=== PATIENT | female | born 1960 ===

== ENCOUNTER 2024-07-27 05:15 | Day surgery (SDC) | payer OTHER ==
[2024-07-25 10:24] VITALS: BP 107/70
[2024-07-25 10:50] LABS: BASO % 0.6 % (0.1-1.2); EOS # 0.06 (0.04-0.54); EOS % 1.1 % (0.7-7.0); HEMATOCRIT 42.4 % (34.1-44.9); HEMOGLOBIN 13.7 g/dL (11.2-15.7); LYMPH # 1.61 (1.18-3.74); MEAN CORPUSCULAR HEMOGLOBIN 27.7 pg (25.6-32.2); MONO # 0.38 (0.24-0.82); MONO % 7.1 % (4.7-12.5); NEUT # 3.28 (1.56-6.13); PLATELET COUNT 322 K/uL (163-369); RED BLOOD COUNT 4.95 M/uL (3.93-5.22); RED CELL DISTRIBUTION WIDTH 14.3 % (11.6-14.4)
[2024-07-25 11:11] LABS: INR 0.97; PARTIAL THROMBOPLASTIN TIME 29.6 SECONDS (22.0-34.0); PROTHROMBIN TIME 10.6 SECONDS (9.0-11.5)
[2024-07-25 11:13] LABS: URINE APPEARANCE Clear; URINE BILIRRUBIN Negative (NEGATIVE); URINE BLOOD Negative; URINE COLOR Yellow; URINE GLUCOSE Negative (NEGATIVE); URINE KETONE Negative (NEGATIVE); URINE LEUKOCYTE Trace; URINE NITRATE Negative; URINE PROTEIN Trace (NEGATIVE)
[2024-07-25 11:17] LABS: URINE BACTERIA 346.3 uL (0.0-1933); URINE RBC 6.1 uL (0.0-20.8); URINE WBC 9.4 uL (0.0-23.2)
[2024-07-25 11:27] LABS: URINE CAST 0.44 uL (0.0-1.40)
[2024-07-25 12:06] LABS: ALBUMIN 3.9 gm/dL (3.4-5.0); BILIRUBIN TOTAL 0.66 mg/dL (0.3-1.2); CALCIUM 9.4 mg/dL (8.5-10.1); CREATININE SERUM 0.62 mg/dL (0.55-1.02); GFR 97.53; GLOBULINA 3.7 G/DL (2.4-3.5); POTASSIUM 4.52 mEq/L (3.5-5.1); TOTAL PROTEIN 7.6 gm/dL (6.4-8.2)
[~2024-07-27] VITALS: Ht 162.6 cm; Wt 78.9 kg
[~2024-07-27 05:15] MED LIST: CLINDAMYCIN PHOSPHATE 150 MG/ML (900mg) IV SCH; CYMBALTA20 MG; OMEPRAZOLE40 MG PO; VITAMIN D310 MCG/1 M
[2024-07-27] MEDS ORDERED: KETOROLAC TROMETHAMINE 30 MG VIAL ONE (06:57)
[2024-07-27] MEDS ORDERED: BUPIVACAINE HCL/MPF 0.5% 30ML VIAL ONE (06:57)
[2024-07-27] MEDS ORDERED: LIDOCAINE HCL 1%/EPINEPHRINE 20ML VIAL IJ ONE (06:58)
[2024-07-27] MEDS ORDERED: CLINDAMYCIN PHOSPHATE 150 MG/ML (900mg) ONE (07:04)
[2024-07-27] MEDS ORDERED: MORPHINE SULFATE 4 MG/ML VIAL IV ONE (09:55)
== END 2024-07-27 11:50 | disposition home or self-care (01) ==
LOC: CIR.AMB 05:15
PROVIDERS: ATTEND Orthopaedic Surgery
DX: M75.122 Complete rotator cuff tear or rupture of left shoulder, not specified as traumatic (principal); M24.112 Other articular cartilage disorders, left shoulder; M75.22 Bicipital tendinitis, left shoulder